=== PATIENT | female | born 1975 | race Caucasian/White ===

== ENCOUNTER 2018-03-27 19:14 | Emergency (ER) | payer OTHER ==
[2018-03-27] MEDS ORDERED: Albuterol 2.5 MG/3 ML NEB.SOL* (0.083%) INH ONE (19:44)
--- NOTE | 2018-03-27 19:53 | UC ---
Respiratory Complaint HPI - HPI Summary HPI Summary: 42-year-old female presents with a harsh, paroxysmal, nonproductive cough for the past 2-3 days. Associated with mild nasal congestion and reports she has had some posttussive emesis with the cough. States approximately 2-1/2-3 weeks ago she was experiencing some upper respiratory symptoms including nasal congestion, clear nasal discharge, sinus pressure, sore throat, and a mild cough. States symptoms were improving and had almost completely resolved after about 2 weeks. Denies fever, chills, sinus pain or pressure, sore throat, ear pain, chest pain, shortness of breath, abdominal pain, nausea, or vomiting. Unsure if she received an update of Tdap. No known sick contact or known exposure to pertusis. - History of Current Complaint Chief Complaint: UCRespiratory Stated Complaint: COUGH Time Seen by Provider: 03/27/18 19:34 Hx Obtained From: Patient Hx Last Menstrual Period: 03/26/18 ?: No Onset/Duration: Gradual Onset, Lasting Days - 2-3 days Pain Intensity: 0 Character: Cough: Nonproductive - Paroxsysmal Aggravating Factors: Deep Breaths, Recumbent Position Alleviating Factors: Nothing Associated Signs And Symptoms: Positive: Nasal Congestion. Negative: Dyspnea, Fever, Chills, Pleuritic Chest Pain, Wheezing, Hemoptysis, Sinus Discomfort - Allergies/Home Medications Allergies/Adverse Reactions: Allergies Allergy/AdvReac Type Severity Reaction Status Date / Time No Known Allergies Allergy Verified 03/27/18 19:30 PMH/Surg Hx/FS Hx/Imm Hx Previously Healthy: Yes - Denies significant PMH - Surgical History Surgical History: None - Family History Family History: Noncontributory - Social History Occupation: Employed Full-time Lives: With Family Alcohol Use: Rare Substance Use Type: None Smoking Status (MU): Never Smoked Tobacco - Immunization History Most Recent Tetanus Shot: UTD Review of Systems Constitutional: Negative Skin: Negative Eyes: Negative ENT: Nasal Discharge Respiratory: Cough - See HPI Cardiovascular: Negative Gastrointestinal: Negative Is Patient Immunocompromised?: No All Other Systems Reviewed And Are Negative: Yes Physical Exam Triage Information Reviewed: Yes Appearance: Well-Appearing, No Pain Distress, Well-Nourished Vital Signs: Initial Vital Signs Temp 97.5 F 03/27/18 19:30 Pulse 91 03/27/18 19:30 Resp 20 10/31/18 19:30 BP 132/86 03/27/18 19:30 Pulse Ox 98 03/27/18 19:30 Eyes: Positive: Conjunctiva Clear. Negative: Discharge ENT: Positive: Nasal congestion, TMs normal, Uvula midline. Negative: Pharyngeal erythema, Nasal drainage, Tonsillar swelling, Tonsillar exudate, Trismus, Muffled voice, Hoarse voice, Sinus tenderness Neck: Positive: Supple, Nontender, No Lymphadenopathy Respiratory: Positive: Lungs clear, Normal breath sounds, No respiratory distress, No accessory muscle use, Other: - Harsh nonproductive parosysmal cough Cardiovascular: Positive: RRR, No Murmur Neurological: Positive: Alert Skin Exam: Normal UC Diagnostic Evaluation - Laboratory O2 Sat by Pulse Oximetry: 98 Re-Evaluation - Re-Evaluation First Eval Re-Evaluation Time: 20:10 Change: Improved Comment: Patient states cough improved. No SOB. Bilateral breath sounds remain clear. Respiratory Course/Dx - Course Course Of Treatment: 42-year-old female presents with 2-3 day history of paroxysms of harsh, nonproductive cough with some posttussis emesis. Her symptoms were preceded with an onset of cold-like symptoms approximately 2-1/2 weeks ago that it improved after about 2 weeks. Afebrile. Vital signs stable. Exam unremarkable except for some mild pharyngeal erythema, mild nasal congestion, and paroxysms of a harsh, nonproductive cough. She was given an albuterol nebulizer treatment in the clinic with some improvement in the cough. Considering the course of her symptoms and the paroxysmal cough with posttussive emesis need to consider pertussis within her differential. Going to treat with a course of azithromycin for an acute bronchitis however this will also cover her for the pertussis pending the PCR results. She was given the first dose of her antibiotics in the clinic and a dose of codeine- guaifenesin 10 mg-100 mg/5 ml was dispensed home for her to use tonight. I have given her prescriptions for these medications as well as a prescription for an albuterol inhaler to use as needed. She is to be off work pending the results of Bordetella PCR. She is to follow-up with her primary care provider in 5 days for recheck. Warning symptoms were reviewed with the patient. Verbalizes understanding and agrees with plan of care. - Differential Dx/Diagnosis Differential Diagnosis/HQI/PQRI: Asthma, Bronchitis, Lower Resp Infection, Other - Pertusis Provider Diagnoses: Acute bronchitis Discharge - Sign-Out/Discharge Documenting (check all that apply): Patient Departure All imaging exams completed and their final reports reviewed: No Studies - Discharge Plan Condition: Stable Disposition: HOME Prescriptions: Albuterol HFA INHALER* [Ventolin HFA Inhaler*] 2 puff INH Q4H PRN #1 mdi PRN Reason: Cough Azithromycin TAB* [Zithromax TAB (Z-TEAGAN) 250 mg #6 tabs] 250 mg PO DAILY #4 tab Codeine Phosphate/Guaifenesin [Codeine-Guaifen 10-100 mg/5 ml] 10 ml PO Q6HR PRN #120 ml MDD 60 ml PRN Reason: Cough Patient Education Materials: Acute Bronchitis (ED) Forms: *Work Release Referrals: Lakeshia Nguyễn MD [Primary Care Provider] - 5 Days (For recheck) Additional Instructions: Your symptoms are likely an acute bronchitis however based on your history and exam there is a small concern for pertusis (whooping cough). We have tested you for whooping cough but it will take a few days to get these results. I am going to go ahead and start you on an antibiotic that will treat you for both of these diagnoses. Start azithromycin. We gave you the first dose in the clinic. Starting tomorrow take 1 tablet daily for 4 days. Use albuterol inhaler 2 puffs every 4-6 hours as needed for shortness of breath , wheezing, or coughing fits. Use codeine/guaifenesin 10 ml every 6 hours as needed for cough. This may cause upset stomach because of the codeine. It will also cause drowsiness so do not take and drive or operate machinery. Drink plenty of fluids and get plenty of rest. Follow up with your primary care provider in 5 days for recheck. Seek immediate medical attention in the emergency room if you have fever greater than 100.5 F, chest pain, shortness of breath, or any worsening of symptoms. - Billing Disposition and Condition Condition: STABLE Disposition: Home
[2018-03-27] MEDS ORDERED: guaiFENesin/CODIEN 100MG-10MG* 5 ML UDC PO ONE (20:25)
[2018-03-27] MEDS ORDERED: Azithromycin TAB* 250 MG PO ONE (20:25)
[2018-03-29 18:47] LABS: Bordetella pertussis PCR Negative
== END 2018-03-27 20:55 | disposition home or self-care (01) ==
LOC: UCCORT 19:14
DX: J20.9 Acute bronchitis, unspecified (principal)
CPT/HCPCS: 87798; 99203; A9270-GY; G0463